=== PATIENT | female | born 1960 | race Caucasian/White ===

== ENCOUNTER 2018-06-30 09:25 | Emergency (ER) | payer OTHER ==
--- NOTE | 2018-06-30 09:55 | ED ---
Neurological HPI - HPI Summary HPI Summary: This patient is a 57 year old F presenting to [facility] accompanied by with a chief complaint of L-sided facial numbness that began yesterday at approximately 1300. The patient rates the pain 0/10 in severity. Symptoms aggravated by nothing. Symptoms alleviated by nothing. Patient reports elevated blood pressure and slight R-sided headache. Patient denies CP. Patient reports she had left-sided facial numbness that began two weeks ago and resolved after one day. Patient reports she was in [place] at the end of April, ; she denies feeling sick at that time. - History of Current Complaint Chief Complaint: EDNeurologicalDeficit Stated Complaint: NUMBESS ON LT SIDE OF FACE/HEADACHE Time Seen by Provider: 06/30/18 09:47 Hx Obtained From: Patient Onset/Duration: Sudden Onset, Started days ago, Still Present Timing: Constant Onset Severity: Mild Current Severity: Mild Number of Seizures: 0 Neurological Deficit Location: Facial Headache Location: Diffuse (Right) Pain Intensity: 0 Pain Scale Used: 0-10 Numeric Aggravating: Nothing Alleviating: Nothing Associated Signs and Symptoms: Positive: Headache. Negative: Chest Pain - Allergy/Home Medications Allergies/Adverse Reactions: Allergies Allergy/AdvReac Type Severity Reaction Status Date / Time MS Sulfa Antibiotics Allergy Hives Verified 09/29/14 15:06 [Sulfa Antibiotics] Home Medications: Home Medications Cholecalciferol (Vitamin D3) [D3-2000] 1 cap PO DAILY 06/30/18 [History Confirmed 06/30/18] Multivitamin/Iron/Folic Acid [Centrum Adults Tablet] 1 cap PO DAILY 06/30/18 [ History Confirmed 06/30/18] PMH/Surg Hx/FS Hx/Imm Hx Previously Healthy: No Cardiovascular History: Reports: Other Cardiovascular Problems/Disorders - Heart Murmur Neurological History: Reports: Hx Seizures - Cancer History Hx Chemotherapy: No Hx Radiation Therapy: No - Surgical History Surgery Procedure, Year, and Place: Denies surgical history Hx Anesthesia Reactions: No Infectious Disease History: No Infectious Disease History: Denies: Traveled Outside the [place] in Last 30 Days - Family History Known Family History: Positive: Other - MS - Social History Occupation: Employed Full-time Lives: With Family Alcohol Use: Rare Hx Substance Use: No Substance Use Type: Reports: None Hx Tobacco Use: No Smoking Status (MU): Never Smoked Tobacco Review of Systems Positive: Other - Positive elevated blood pressure. Negative: Chest Pain Neurological: Other - Positive left-sided facial numbness Positive: Headache All Other Systems Reviewed And Are Negative: Yes Physical Exam - Summary Physical Exam Summary: VITAL SIGNS: Reviewed. GENERAL: Patient is a well-developed and nourished female who is lying comfortable in the stretcher.Patient is not in any acute respiratory distress. HEAD AND FACE: No signs of trauma. No ecchymosis, hematomas or skull depressions. No sinus tenderness. EYES: PERRLA, EOMI x 2, No injected conjunctiva, no nystagmus. No photophobia. EARS: Hearing grossly intact. Ear canals and tympanic membranes are within normal limits. MOUTH: Oropharynx within normal limits. NECK: Supple, trachea is midline, no adenopathy, no JVD, no carotid bruit, no c- spine tenderness, neck with full ROM. No meningeal signs, no Kernig's or brudzinskis signs. CHEST: Symmetric, no tenderness at palpation LUNGS: Clear to auscultation bilaterally. No wheezing or crackles. CVS: Regular rate and rhythm, S1 and S2 present, no murmurs or gallops appreciated. ABDOMEN: Soft, non-tender. No signs of distention. No rebound no guarding, and no masses palpated. Bowel sounds are normal. EXTREMITIES: FROM in all major joints, no edema, no cyanosis or clubbing. NEURO: Alert and oriented x 3. No acute neurological deficits. Speech is normal and follows commands. SKIN: Dry and warm GCS: 15 Triage Information Reviewed: Yes Vital Signs On Initial Exam: Initial Vitals Temp Pulse Resp BP Pulse Ox 97.8 F 68 14 178/93 98 06/30/18 09:29 06/30/18 09:29 06/30/18 09:29 06/30/18 09:29 06/30/18 09:29 Vital Signs Reviewed: Yes Diagnostics - Vital Signs Vital Signs Temp Pulse Resp BP Pulse Ox 06/30/18 09:29 97.8 F 68 14 178/93 98 - Laboratory Result Diagrams: 06/30/18 10:32 06/30/18 10:32 Lab Statement: Any lab studies that have been ordered have been reviewed, and results considered in the medical decision making process. - CT Brain CT CT Interpretation Completed By: Radiologist - Brain CT reveals, per radiologist , no evidence for acute intracranial abnormality. ED physician has reviewed this radiology report. - EKG 0958 Cardiac Rate: NL EKG Rhythm: Sinus Rhythm - 71 BPM EKG Interpretation: No ST elevations. Nml axis Re-Evaluation - Re-Evaluation First Eval Re-Evaluation Time: 12:09 Change: Unchanged Comment: Discussed results and plan of care with patient Course/Dx - Course Assessment/Plan: This patient is an 87-year-old male who presents to the emergency room with a chief complaint of having shortness of breath and bilateral lower extremity edema. The patient reports that the symptoms have been present for the last 7-10 days. Patient denies any chest pain shortness of breath or palpitations. Blood test result shows and a slight normochromic normocytic anemia, carbon dioxide of 21, BUN 77 creatinine is 4.03. CRP is 19.8 and the BNP is 1173. This is consistent with CHF exacerbation, and acute renal failure. Patient also has I urinalysis which shows no UTI. Chest x-ray impression: Bilateral infiltrates and a small bilateral pleural effusion most consistent with pneumonia or congestive heart failure. Patient does not have any increase in WBCs however, the CRP is 19.8. He does not have any fever or chills, he doesnt have any cold symptoms or any cough so I have a low suspicion for pneumonia. I will not place the patient on antibiotics at this point onto further evaluated by a the hospitalist.. At this point I discussed my physical exam, findings and test results with Dr. Roland who accepted the patient for admission. Patient is hemodynamically stable. - Differential Dx Differential Diagnoses Neuro: Positive: Benign Paroxysmal Positional Vertigo, Cerebrovascular Accident, Seizure Disorder, Vasovagal Reaction - Diagnoses Provider Diagnoses: Facial paresthesia - Physician Notifications Discussed Care Of Patient With: Quique Kauffman Time Discussed With Above Provider: 11:56 Instructed by Provider To: Other - Consult with Dr. Kauffman (neurology) at 1156. He recommends patient be discharged with follow up for the elevated BP. Discharge - Sign-Out/Discharge Documenting (check all that apply): Patient Departure - Discharge home - Discharge Plan Condition: Stable Disposition: HOME Patient Education Materials: Paresthesia (ED) Referrals: Tanisha Rivera MD [Primary Care Provider] - 2 Days (Follow up for your elevated blood pressure) Additional Instructions: RETURN TO THE EMERGENCY DEPARTMENT FOR NEW OR WORSENING SYMPTOMS - Billing Disposition and Condition Condition: STABLE Disposition: Home Attestations Scribe Attestation: This is kit Sol[employer] documenting for attending Jose Marc MD. User Type: Provider with Scribe Provider Attestation: The documentation recorded by the scribe accurately reflects the service I personally performed and the decisions made by me.
--- NOTE | 2018-06-30 10:18 | RAD ---
INDICATION: Headache and numbness. COMPARISON: There are no prior studies available for comparison. TECHNIQUE: Contiguous axial sections of the brain were obtained from the skull base to the vertex without contrast. FINDINGS: The ventricles, cisterns and sulci are within normal limits. No significant focal abnormality or mass effect is seen. There is no evidence for hemorrhage. The visualized portion of the paranasal sinuses and mastoid air cells appear clear. IMPRESSION: NO EVIDENCE FOR ACUTE INTRACRANIAL ABNORMALITY.
[2018-06-30 10:39] LABS: ABS Basophils 0.1 10^3/ul (0-0.2); ABS Eosinophils 0.1 10^3/ul (0-0.6); ABS Lymphocytes 1.2 10^3/ul (1.0-4.8); ABS Monocytes 0.3 10^3/ul (0-0.8); ABS Neutrophils 3.7 10^3/ul (1.5-7.7); ABS Nucleated RBC 0 10^3/ul; Eosinophil % 2.1 % (0-6); Hematocrit 41 % (35-47); Hemoglobin 14.2 g/dl (12.0-16.0); Lymphocyte % 21.6 % (25-47); Mean Corpuscular HGB Conc 35 g/dl (31-36); Mean Corpuscular Hemoglobin 31 pg (27-31); Mean Corpuscular Volume 88 fL (80-97); Mean Platelet Volume 6.5 um3 (7.4-10.4); Nucleated Red Blood Cells % 0.1; Platelet Count 238 10^3/ul (150-450); Red Blood Count 4.61 10^6/ul (4.00-5.40); Red Cell Distribution Width 12 % (10.5-15); White Blood Count 5.3 10^3/ul (3.5-10.8)
[2018-06-30 10:45] LABS: INR 0.9 (0.77-1.02)
[2018-06-30 11:00] LABS: EGFR Non-African American 93.6 (>60)
[2018-06-30 12:29] VITALS: BP 160/80
== END 2018-06-30 12:27 | disposition home or self-care (01) ==
LOC: ED 09:25
DX: R20.2 Paresthesia of skin (principal); R06.02 Shortness of breath; R60.0 Localized edema; R91.8 Other nonspecific abnormal finding of lung field; J90 Pleural effusion, not elsewhere classified; D64.9 Anemia, unspecified
CPT/HCPCS: 36415; 70450; 80053; 80061; 83605; 84484; 85025; 85610; 93005; 99282